=== PATIENT | male | born 1985 | race African-American/Black ===

== ENCOUNTER 2019-06-12 14:38 | Emergency (ER) | payer SELFPAY ==
[~2019-06-12] VITALS: Ht 188 cm; Wt 164.2 kg
[2019-06-12 14:50] VITALS: BP 202/123
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
[2019-06-12] MEDS ORDERED: HYDR-3164 PO (16:02)
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
== END 2019-06-12 16:30 | disposition home or self-care (01) ==
LOC: ER 14:38 → EDSEX 14:38 → ER 16:30
DX: S62.325A Displaced fracture of shaft of fourth metacarpal bone, left hand, initial encounter for closed fracture (principal); I10 Essential (primary) hypertension; Y08.89XA Assault by other specified means, initial encounter; Y93.89 Activity, other specified; Y92.89 Other specified places as the place of occurrence of the external cause; Y99.8 Other external cause status
CPT/HCPCS: 29125; 73130; 99284